=== PATIENT | male | born 1950 | race African-American/Black ===

== ENCOUNTER → 2019-10-17 | Outpatient (CLI) | payer MEDICARE, OTHER ==
--- NOTE | 2019-10-18 10:08 | KCIC ---
LUMBAR SPINE WO CONTRAST History: Lumbar radiculopathy. Bilateral radiculopathy. Worsening pain. Technique: Multiplanar, multi sequential MR imaging was performed of the lumbar spine. Comparison: None Findings: Mild retrolisthesis L5 on S1. Normal vertebral body height. No fracture. No pathologic marrow placing process. Conus terminates at the normal location. No evidence of nerve root clumping. L1-L2: No canal or neuroforaminal narrowing. L2-L3: Minimal posterior disc bulge. Mild facet arthropathy. No canal or neuroforaminal narrowing. L3-L4: Small posterior disc bulge. Moderate facet arthropathy. Minimal subarticular recess narrowing. No canal narrowing. No neuroforaminal narrowing. L4-L5: Broad-based posterior disc bulge. Advanced facet arthropathy. Bilateral subarticular recess narrowing. Abutment of the descending bilateral L5 nerve roots within the subarticular recess. Minimal canal narrowing. Mild bilateral neural foraminal narrowing. L5-S1: Small posterior disc bulge. Moderate facet arthropathy. Bilateral subarticular recess narrowing with abutment of the right greater than left S1 nerve roots within the subarticular recess. Moderate to severe left and mild to moderate right neuroforaminal narrowing. Impression: 1. Moderate multilevel lumbar spondylosis most prominent L4-L5 and L5-S1 with abutment of the descending L5 and L5-S1 nerve roots within the subarticular recess. Correlate for radiculopathy. 2. Moderate to severe left L5-S1 neural foraminal narrowing. Electronically signed by: Leonidas Meyer DO (10/18/2019 10:05 AM) [facility]
== END | disposition home or self-care (01) ==
LOC: KCIC MRI 16:06
PROVIDERS: ATTEND Anesthesiology Pain Medicine
DX: M51.27 Other intervertebral disc displacement, lumbosacral region (principal); M48.07 Spinal stenosis, lumbosacral region; M47.27 Other spondylosis with radiculopathy, lumbosacral region; M12.88 Other specific arthropathies, not elsewhere classified, other specified site
CPT/HCPCS: 72148

== ENCOUNTER → 2019-12-09 | Outpatient (CLI) | payer MEDICARE, OTHER ==
[~2019-12-09] MED LIST: ZOLPIDEM 5 MG TABLET. PO ONE
--- NOTE | 2019-12-10 17:12 | SLEEP ---
DATE OF STUDY: 12/09/2019 STUDY: Sleep study. ATTENDING PHYSICIAN: ____. INDICATIONS: The patient is a 69-year-old, who weighs 227 pounds with the body mass index of 31. The patient's Baxter score was 7. The patient underwent a diagnostic sleep study performed at [facility]. FINDINGS: During the night study, the patient spent 436 minutes in bed and slept for 379 minutes with the sleep efficiency of 87%. Sleep latency was 38 minutes with the REM latency of 31 minutes, which is short. Sleep architecture showed increased stage 1 and stage 2 sleep, absent slow wave, and normal REM sleep. During the night study, the patient had no obstructive mixed or central apneas. There were 39 hypopneas. The patient's apnea-hypopnea index was 6 per hour, supine index 6 per hour, and the REM index of 25 per hour. EKG monitoring revealed an average heart rate of 71 beats per minute. It appeared to be intermittently irregular consistent with atrial fibrillation and occasional premature ventricular contractions seen. Periodic limb movements of sleep were seen at index of 3 per hour and 1 per hour caused EEG arousals. Nocturnal oximetry study revealed a mean oxygen saturation of 93% with the lowest of 83%; 9% of time, oxygen saturation remained between 80% and 89%. Due to low apnea-hypopnea index, the patient did not meet the split night criteria for CPAP initiation. IMPRESSION: 1. Mild sleep apnea-hypopnea syndrome with moderate increase during REM sleep. 2. Mild nocturnal hypoxia secondary to obstructive sleep apnea. 3. No clinically significant periodic limb movements. 4. Abnormal EKG with possible intermittent atrial fibrillation. RECOMMENDATIONS: 1. The patient did not meet the split night criteria for CPAP initiation. If the patient is clinically symptomatic or has comorbid conditions, then the patient would benefit from CPAP versus oral appliance. 2. Weight loss is strongly advised. 3. Avoid [employer] depressants. 4. Cautioned regarding driving until symptoms of sleep apnea resolve with above recommendation. 5. Follow up with Cardiology regarding abnormal EKG if clinically indicated. ADALGISA CLEMENTS MD DR: CARY/imna JOB#: [id number] / [id number] , MTDD
== END | disposition home or self-care (01) ==
LOC: SLPLAB 19:09
PROVIDERS: ATTEND Internal Medicine Critical Care Medicine
DX: G47.33 Obstructive sleep apnea (adult) (pediatric) (principal); G47.32 High altitude periodic breathing; G47.10 Hypersomnia, unspecified
CPT/HCPCS: 95810